=== PATIENT | male | born 1980 | race Caucasian/White ===

== ENCOUNTER 2021-08-20 14:33 | Outpatient (CLI) | payer OTHER | END 2021-08-20 14:34 | disposition home or self-care (01) | LOC: BICULT 14:33 | PROVIDERS: ATTEND Internal Medicine Nephrology | DX: N17.9 Acute kidney failure, unspecified (principal) | CPT/HCPCS: 76770 ==

== ENCOUNTER 2021-09-17 12:30 | Outpatient (CLI) | payer OTHER ==
[2021-09-17 13:29] LABS: Hemoglobin 15.3 g/dL (13.5-17.5); Mean Corpuscular HGB CONC 34.5 g/dL (32.0-36.0); Mean Corpuscular Volume 89.7 fl (81.2-95.1); Platelet Count 293 10x3/uL (150-450); Red Blood Cell (RBC) Count 4.94 10x6/uL (4.32-5.72); White Blood Cell (WBC) Count 5.3 10x3/uL (3.5-10.5)
[2021-09-17 13:46] LABS: PTT 23.4 sec (22.0-33.0); Prothrombin Time 10.6 sec (9.5-12.1)
[2021-09-17 13:49] LABS: Anion Gap 13 mmol/L (10-20); BUN (Urea Nitrogen) 11 mg/dL (8.9-20.6); Calc. Creatinine Clearance 0 mL/min (70-130); Calcium 9.4 mg/dL (7.8-10.44); Carbon Dioxide 26 mmol/L (22-29); Chloride 104 mmol/L (98-107); Glucose 143 mg/dL (70-105); Potassium 4.4 mmol/L (3.5-5.1); Sodium 139 mmol/L (136-145)
[2021-09-18 00:09] LABS: SARS-CoV-2 PCR by NAA Not Detected (NotDetected)
== END 2021-09-17 12:31 | disposition home or self-care (01) ==
LOC: LABBT 12:30
PROVIDERS: ATTEND Neurological Surgery
DX: Z01.812 Encounter for preprocedural laboratory examination (principal); M48.061 Spinal stenosis, lumbar region without neurogenic claudication; Z20.822 Contact with and (suspected) exposure to COVID-19
CPT/HCPCS: 80048; 85027; 85610; 85730; U0003; U0005

== ENCOUNTER 2021-09-21 05:50 | Day surgery (SDC) | payer OTHER ==
[2021-09-19 11:53] VITALS: BMI 33.7
[2021-09-21] MEDS ORDERED: Bupivacaine 0.25% 10 ML VIAL ONE (06:38)
[2021-09-21] MEDS ORDERED: Thrombin 5000 UNITS/5 ML VIAL ONE (06:38)
[2021-09-21] MEDS ORDERED: EPINEPHrine 1 MG/ML AMP ONE (06:38)
[2021-09-21] MEDS ORDERED: Midazolam HCl 2 mg/2 ml Vial ONE (06:57)
[2021-09-21] MEDS ORDERED: Fentanyl 250 MCG/5 ML VIAL ONE (06:58)
[2021-09-21] MEDS ORDERED: ceFAZolin (BATCH) 2 GM/100 ML BAG ONE ×2 (06:58)
[2021-09-21] MEDS ORDERED: PHENYLEPHRINE-NS 100 MCG/ML 10 ML SYRINGE ONE (07:08)
[2021-09-21] MEDS ORDERED: Dexamethasone 20 MG/5 ML VIAL ONE (07:08)
[2021-09-21] MEDS ORDERED: Ondansetron PF 4 MG/2 ML Vial ONE ×2 (07:08)
[2021-09-21] MEDS ORDERED: Glycopyrrolate 0.2 MG/ML 5 ML SYRINGE ONE (07:08)
[2021-09-21] MEDS ORDERED: Lidocaine 1% PF 5 ML VIAL ONE (07:08)
[2021-09-21] MEDS ORDERED: Rocuronium Bromide 10 MG/ML (10ML VIAL) ONE (07:08)
[2021-09-21] MEDS ORDERED: Succinylcholine 200 MG/10 ml SYRINGE FS ONE (07:08)
[2021-09-21] MEDS ORDERED: Albuterol Sulfate HFA (OR ONLY) ONE (07:08)
[2021-09-21] MEDS ORDERED: PROPOFOL 200 MG/20 ML VIAL ONE (07:08)
[2021-09-21] MEDS ORDERED: fentaNYL Citrate/PF 100 MCG/2 ML SYRINGE ONE (07:57)
[2021-09-21] MEDS ORDERED: Phenylephrine 10 MG/ML VIAL ONE (07:57)
[2021-09-21] MEDS ORDERED: SUGAMMADEX SODIUM 200 MG/2 ML VIAL ONE (09:53)
[2021-09-21] MEDS ORDERED: Fentanyl 100 MCG/2 ML VIAL ONE ×2 (10:37→10:59)
[2021-09-21] MEDS ORDERED: Tamsulosin HCl 0.4 MG CAP ONE (11:13)
[2021-09-21] MEDS ORDERED: HYDROcodone/Acetaminophen 7.5/325 mg Tablet ONE (12:25)
[2021-09-21] MEDS ORDERED: Cyclobenzaprine 10 MG TAB ONE (12:26)
== END 2021-09-21 12:49 | disposition home or self-care (01) ==
LOC: SDC 05:50
PROVIDERS: ATTEND Neurological Surgery
PROC: 00NY0ZZ Release Lumbar Spinal Cord, Open Approach (ICD-10-PCS; principal; 2021-09-21)
DX: M48.062 Spinal stenosis, lumbar region with neurogenic claudication (principal); J45.909 Unspecified asthma, uncomplicated; I10 Essential (primary) hypertension; E78.5 Hyperlipidemia, unspecified; Z79.899 Other long term (current) drug therapy; Z91.011 Allergy to milk products
CPT/HCPCS: 76000; J0171; J0690; J2250; J2370; J3010; J3370; S0020

== ENCOUNTER 2021-11-27 17:30 | Outpatient (CLI) | payer OTHER | END 2021-11-27 17:31 | disposition home or self-care (01) | LOC: SLEEPLAB 17:30 | PROVIDERS: ATTEND Family Medicine | DX: G47.33 Obstructive sleep apnea (adult) (pediatric) (principal); R53.83 Other fatigue; R06.83 Snoring; F41.9 Anxiety disorder, unspecified; G47.00 Insomnia, unspecified; E66.9 Obesity, unspecified; Z68.35 Body mass index [BMI] 35.0-35.9, adult | CPT/HCPCS: 95800 ==

== ENCOUNTER 2025-02-15 05:51 | Day surgery (SDC) | payer BC ==
[2025-02-09 11:27] VITALS: BMI 32.1
[2025-02-15] MEDS ORDERED: Thrombin 5000 UNITS/5 ML VIAL ONE (06:12)
[2025-02-15] MEDS ORDERED: PROPOFOL 20 ML ONE (06:24)
[2025-02-15] MEDS ORDERED: fentaNYL PF 100 MCG/2 ML SYRINGE ONE ×3 (06:24→10:14)
[2025-02-15] MEDS ORDERED: Rocuronium Bromide 10 MG/ML (10ML VIAL) ONE (06:25)
[2025-02-15] MEDS ORDERED: Lidocaine 1% PF 5 ML VIAL ONE (06:25)
[2025-02-15] MEDS ORDERED: CEFAZOLIN 2 GM VIAL ONE (06:35)
[2025-02-15] MEDS ORDERED: Glycopyrrolate 0.2 MG/ML 5 ML SYRINGE ONE (08:42)
[2025-02-15] MEDS ORDERED: PHENYLEPHRINE-NS 100 MCG/ML 10 ML SYRINGE ONE (08:42)
[2025-02-15] MEDS ORDERED: Ondansetron PF 4 MG/2 ML Vial ONE (09:05)
[2025-02-15] MEDS ORDERED: SUGAMMADEX SODIUM 200 MG/2 ML VIAL ONE (09:43)
[2025-02-15] MEDS ORDERED: HYDROmorphone 0.5 MG/0.5 ML SYRINGE ONE ×2 (10:14→10:50)
[2025-02-15] MEDS ORDERED: HYDROcodone/Acetaminophen 5/325 mg Tablet ONE (12:15)
== END 2025-02-15 13:30 | disposition home or self-care (01) ==
LOC: SDC 05:51
PROVIDERS: ATTEND Neurological Surgery
DX: M50.11 Cervical disc disorder with radiculopathy, high cervical region (principal); J45.909 Unspecified asthma, uncomplicated; I10 Essential (primary) hypertension; E78.5 Hyperlipidemia, unspecified; Z79.51 Long term (current) use of inhaled steroids; Z79.899 Other long term (current) drug therapy; Z91.011 Allergy to milk products
CPT/HCPCS: C1713; J1100; J1171; J2250; J2704; J3373